=== PATIENT | male | born 1995 | race Hispanic/Latino ===

== ENCOUNTER 2019-03-08 15:28 | Emergency (ER) | payer SELFPAY ==
--- NOTE | 2019-03-08 17:24 | ER ---
Nurse's Notes [facility] Name: Jason Thompson Age: 23 yrs Sex: Male : 1995 Arrival Date: 03/08/2019 Time: 15:30 Bed Waiting Private MD: Diagnosis: Presentation: 03/08 15:38 Presenting complaint: Patient states: left 2nd digit laceration to the knuckle with an sv angle loader magazine grinder. Transition of care: patient was not received from another setting of care. Complicating Factors: There are no complicating factors for this patient. Onset of symptoms was March 08, 2019. Care prior to arrival: None. 15:38 Method Of Arrival: Ambulatory sv 15:38 Acuity: JOANN 3 sv Historical: - Allergies: 15:39 No Known Allergies; sv - PSHx: 15:39 None; sv Assessment: 16:50 Reassessment: pt not in lobby. iw Vital Signs: 15:39 BP 129 / 74; Pulse 65; Resp 16; Temp 98.4; Pulse Ox 98% ; Weight 61.23 kg; Height 5 ft. sv 7 in. (170.18 cm); Pain 0/10; 15:39 Body Mass Index 21.14 (61.23 kg, 170.18 cm) sv ED Course: 15:30 Patient arrived in ED. as 15:34 Triage completed. sv 15:40 Arm band placed on. sv 16:52 Patient's name was called from ER lobby. No response. sv Administered Medications: No medications were administered Outcome: 17:24 Patient left the ED. hb Signatures: Geri Velazquez RN RN Shoshana Javier as Irina Parish RN RN Marion Baker RN RN Corrections: (The following items were deleted from the chart) 15:35 15:33 Presenting complaint: Patient states: back pain and right posterior shoulder pain sv x 1 day. Reports she lifted heavy boxes yesterday. sv 15:35 15:33 Transition of care: patient was not received from another setting of care. sv sv 15:35 15:33 Complicating Factors: There are no complicating factors for this patient. sv sv 15:35 15:33 Onset of symptoms was March 07, 2019 sv sv 15:35 15:33 Care prior to arrival: None. sv sv 15:35 15:33 Method Of Arrival: Ambulatory sv sv 15:35 15:33 Acuity: JOANN 4 sv sv 15:36 15:34 Allergies: Vioxx; sv sv 15:36 15:34 Allergies: Ibuprofen; sv sv 15:36 15:34 PMHx: allergies; sv sv 15:36 15:34 PMHx: Asthma; sv sv 15:36 15:34 PSHx: None; sv sv 15:36 15:34 BP 113 / 77; Pulse 66bpm; Resp 16bpm; Pulse Ox 99%; Temp 98F; 65.77 kg; Height 5 sv ft. 3 in.; BMI: 25.6; Pain 9/10; sv 15:36 15:35 Arm band placed on Patient placed in waiting room, Patient notified of wait time sv sv
== END 2019-03-08 17:24 | disposition left against medical advice (07) ==
LOC: ER 15:28
DX: Z53.21 Procedure and treatment not carried out due to patient leaving prior to being seen by health care provider (principal)
CPT/HCPCS: 99281